=== PATIENT | female | born 1935 | race Caucasian/White ===

== ENCOUNTER → 2016-10-05 | Outpatient (CLI) | payer MEDICARE, MEDICAID ==
[~2016-10-05] MED LIST: 'CIPRO500 M1 PO; ADVAIR 500/501 E1 INH; ADVAIR 500/501 EA INH; AMLODIPINE5 MG PO; ASPIRIN81 M1 PO; CAL PO; CELEBREX200 MG PO; CEPHALEXIN500 M1 PO; CIPRO500 MG PO; COUMADIN3 M1 PO; ENALAPRIL20 MG PO; FLAGYL500 MG PO; FLAX SEED OIL1000 MG PO; FLAXSEED OIL1000 MG PO; INCRUSE EL62.5 MCG/A IH; LASIX20 MG PO; MAG PO; MULTI VITAMINS1 TAB PO; NASONEX0.05 MG/AC NAS; NEXIUM40 MG PO; NORVASC10 MG PO; OCUVITE1 TA2 PO; OXYBUTYNIN ER15 MG PO; OXYBUTYNIN5 MG PO; PERCOCET 325 MG1 TA2 PO; PRILOSEC20 M1 PO; PRILOSEC20 MG PO; PROVENTIL0.09 MG/A1 IH; SIMVASTATIN20 MG PO; SINGULAIR10 MG PO; SPIRIVA18 MCG PO; VENTOLIN H0.09 MG/AC INH; VICODIN 5-3001 EACH PO; VITAMIN D22000 UNIT PO; Vicodin 5/500 505 MG PO
== END | disposition home or self-care (01) ==
LOC: CARD 02:03
DX: I27.2 Other secondary pulmonary hypertension (principal); I51.7 Cardiomegaly; I34.0 Nonrheumatic mitral (valve) insufficiency; I07.1 Rheumatic tricuspid insufficiency

== ENCOUNTER → 2016-10-18 | Outpatient (CLI) | payer MEDICARE, MEDICAID ==
[2016-10-18 10:25] LABS: BASO % 0.7 % (0.0-1.0); EOS # 0.3 10*3/uL (0.0-0.4); EOS % 4.9 % (1.0-4.0); HEMOGLOBIN 13.7 g/dl (12.0-16.0); LYMPH # 2.2 10*3/uL (1.3-4.4); MEAN CELL VOLUME 97.3 fl (81.0-99.0); MEAN CORPUSCULAR HGB 30.3 pg (27.0-31.0); MEAN CORPUSCULAR HGB CONC 31.1 g/dl (33.0-37.0); MEAN PLATELET VOLUME 9.6 fl (9.6-12.3); MONO # 0.4 10*3/uL (0.1-1.0); MONO % 7.1 % (3.0-9.0); PLATELET COUNT AUTOMATED 230 10*3/uL (130-400); RED BLOOD COUNT 4.52 10*6/uL (4.10-5.10); RED CELL DISTRI WIDTH 13.2 % (0-14.5)
[2016-10-18 10:28] LABS: BILIRUBIN NEGATIVE (NEGATIVE); BLOOD NEGATIVE (NEGATIVE); CLARITY CLEAR (CLEAR); COLOR YELLOW (YELLOW); GLUCOSE NEGATIVE (NEGATIVE); KETONE NEGATIVE (NEGATIVE); LEUKO ESTERASE NEGATIVE (NEGATIVE); NITRITE NEGATIVE (NEGATIVE); PH 5.5 (5.0-9.0); PROTEIN NEGATIVE (NEGATIVE); SPECIFIC GRAVITY 1.015 (1.005-1.030); UROBILINOGEN 0.2 E.U./dl (0.2-1.0)
[2016-10-18 10:38] LABS: URINE TP/CRE RATIO 0.1 (<0.21)
[2016-10-18 10:51] LABS: INTERNATIONAL NORM RATIO 2.2 (2.0-3.5); PROTHROMBIN TIME 25.1 SECONDS (9.0-12.4)
[2016-10-18 10:52] LABS: ALBUMIN 3.7 gm/dl (3.1-4.5); BUN 20 mg/dl (7-24); CARBON DIOXIDE 29 mmol/L (21-32); CHLORIDE 108 mmol/L (98-107); EST GLOM FILT AFRICAN AMERICAN > 60 ml/min; GLUCOSE 99 mg/dL (65-99); POTASSIUM 4.1 mmol/L (3.5-5.1); SODIUM 143 mmol/L (136-145)
== END | disposition home or self-care (01) ==
LOC: LAB 09:54
PROVIDERS: Internal Medicine Nephrology
DX: N18.2 Chronic kidney disease, stage 2 (mild) (principal); I48.2 Chronic atrial fibrillation; Z79.899 Other long term (current) drug therapy

== ENCOUNTER → 2017-01-18 | Outpatient (CLI) | payer MEDICARE, MEDICAID | END | disposition home or self-care (01) | LOC: RAD 09:51 | DX: G56.03 Carpal tunnel syndrome, bilateral upper limbs (principal); M19.032 Primary osteoarthritis, left wrist; M19.031 Primary osteoarthritis, right wrist; M79.641 Pain in right hand; M25.531 Pain in right wrist; M19.042 Primary osteoarthritis, left hand; M19.041 Primary osteoarthritis, right hand ==

== ENCOUNTER → 2017-02-10 | Outpatient (CLI) | payer MEDICARE, MEDICAID | END | disposition home or self-care (01) | LOC: RAD 09:21 | DX: M16.12 Unilateral primary osteoarthritis, left hip (principal) ==

== ENCOUNTER → 2018-01-10 | Outpatient (CLI) | payer MEDICARE, MEDICAID | END | disposition home or self-care (01) | LOC: RAD 13:23 | DX: Z13.820 Encounter for screening for osteoporosis (principal); Z78.0 Asymptomatic menopausal state ==

== ENCOUNTER 2019-04-11 07:21 | Inpatient (IN) | payer MEDICARE, MEDICAID ==
[~2019-04-11] VITALS: Ht 160 cm; Wt 75.5 kg
[2019-04-11 07:21] VITALS: BP 134/74
--- NOTE | 2019-04-11 07:33 | NUR ---
PT VISITING WITH VISITOR AT BEDSIDE.
--- NOTE | 2019-04-11 08:14 | NUR ---
RESTING IN BED QUIETLY, CALL LIGHT IN REACH AND REINFORCED.
[2019-04-11 08:22] LABS: BASO % 0.3 % (0.0-1.0); EOS # 0.2 10*3/uL (0.0-0.4); EOS % 1.7 % (1.0-4.0); HEMATOCRIT 42.8 % (37.0-47.0); HEMOGLOBIN 13.5 g/dl (12.0-16.0); LYMPH # 1.4 10*3/uL (1.3-4.4); LYMPH % 12.7 % (27.0-41.0); MEAN CELL VOLUME 95.3 fl (81.0-99.0); MEAN CORPUSCULAR HGB 30.1 pg (27.0-31.0); MEAN CORPUSCULAR HGB CONC 31.5 g/dl (33.0-37.0); MEAN PLATELET VOLUME 9.8 fl (9.6-12.3); MONO # 0.7 10*3/uL (0.1-1.0); MONO % 6.1 % (3.0-9.0); NEUT # 8.7 10*3/uL (2.3-7.9); NEUT % 78.8 % (47.0-73.0); PLATELET COUNT AUTOMATED 240 10*3/uL (130-400); RED BLOOD COUNT 4.49 10*6/uL (4.10-5.10); RED CELL DISTRI WIDTH 14.6 % (0-14.5); WHITE BLOOD COUNT 11.1 10*3/uL (4.8-10.8)
--- NOTE | 2019-04-11 08:27 | NUR ---
UP TO BEDSIDE COMMODE, TOLERATED WELL.
[2019-04-11 08:33] LABS: ACT PARTIAL THROMBO TIME 29.9 SECONDS (20.0-32.1)
[2019-04-11 08:37] LABS: ALBUMIN 3.6 gm/dl (3.1-4.5); ALKALINE PHOSPHATASE 86 U/L (45-117); BUN 27 mg/dl (7-24); CHLORIDE 106 mmol/L (98-107); CREATININE 1.01 mg/dL (0.55-1.02); LIPASE 60 U/L (73-393); POTASSIUM 3.9 mmol/L (3.5-5.1); SGOT/AST 14 IU/L (3-35); SGPT/ALT 17 U/L (12-78); SODIUM 141 mmol/L (136-145); TOTAL PROTEIN 7.2 gm/dL (6.4-8.2); TROPONIN I < 0.015 ng/ml (<0.045)
--- NOTE | 2019-04-11 08:40 | NUR ---
PT HAD SMALL AMOUNT OF LIQUID BROWN DIARRHEA WHEN UP TO BEDSIDE COMMODE.
[2019-04-11 08:51] LABS: BILIRUBIN NEGATIVE (NEGATIVE); BLOOD NEGATIVE (NEGATIVE); CLARITY CLEAR (CLEAR); COLOR YELLOW (YELLOW); GLUCOSE NEGATIVE (NEGATIVE); KETONE NEGATIVE (NEGATIVE); LEUKO ESTERASE NEGATIVE (NEGATIVE); NITRITE NEGATIVE (NEGATIVE); UROBILINOGEN 0.2 E.U./dl (0.2-1.0)
[2019-04-11 09:03] LABS: WBC 0-2 wbc/hpf (0-5)
--- NOTE | 2019-04-11 09:20 | NUR ---
SLEEPING, RESPS EASY. IVF INFUSING.
--- NOTE | 2019-04-11 09:46 | NUR ---
RESTING IN BED, TELLS ME "FEELS A LITTLE BIT BETTER".
[2019-04-11 09:51] VITALS: BP 130/80
--- NOTE | 2019-04-11 10:25 | NUR ---
UNABLE TO TRANSPORT PT TO ROOM D/T RESIDENTS AT BEDSIDE.
[2019-04-11 11:00] VITALS: BP 125/55
--- NOTE | 2019-04-11 11:01 | NUR ---
A 83, admitted to 5E, under the services of MARS Michele DO with a diagnosis of DIARRHEA GEN. WEAKNESS ABDOMINAL PAIN [id number]. Chief complaint is DIARRHEA. Patient arrived via stretcher from ER. Monitor applied. Initial assessment completed. Vital signs taken and recorded. MARS MICHELE DO notified of admission to the unit. Orders received. See assessment for past medical history, medications and allergies. Patient and/or family oriented to unit. [address] visitation policy reviewed. Clothing/patient valuable form completed. IRIS TOMLINSON
[2019-04-11] MEDS ORDERED: NEXIUM40 MG PO (11:49)
[2019-04-11] MEDS ORDERED: AYR SALINE50 ML NAS (11:54)
[2019-04-11] MEDS ORDERED: ELIQUIS5 M1 PO (11:56)
--- NOTE | 2019-04-11 12:19 | NUR ---
Notified Dr. Dewey that med rec is up to date and completed. No new orders at this time, physician to review.
[2019-04-11 16:00] VITALS: BP 123/52
[2019-04-11 20:00] VITALS: BP 138/64
--- NOTE | 2019-04-11 20:58 | NUR ---
24 HR chart check completed.
--- NOTE | 2019-04-11 21:00 | NUR ---
SLEEPING, AWAKENS EASILY. RESPIRATIONS EASY. LUNGS DIMINISHED, CLEAR. PULSE OX 95% RA. TRACE BLE EDEMA. OFFERED AND EDUCATED REGARDING TEDS, PATIENT RECEPTIVE AND TEDS PLACED AT BEDSIDE. IV FLUIDS INFUSING PER ORDER. CALL LIGHT WITHIN REACH. NO VOICED COMPLAINTS
--- NOTE | 2019-04-11 21:55 | NUR ---
REQUESTED AND RECEIVED NORCO PER PRN ORDER FOR COMPLAINTS OF CHRONIC KNEE AND BACK PAIN RATING A 7. CALL LIGHT WITHIN REACH. WILL MONITOR
[2019-04-12] VITALS: BP 127/71
--- NOTE | 2019-04-12 | NUR ---
MEDS EFFECTIVE. SLEEPING. RESPIRATIONS EASY. VSS. CALL LIGHT WITHIN REACH
--- NOTE | 2019-04-12 06:00 | NUR ---
SLEPT THROUGHOUT NIGHT WITH NO DISTRESS NOTED. RESPIRATIONS EASY. IV FLUIDS MAINTAINED. CALL LIGHT WITHIN REACH. BED ALARM MAINTAINED FOR SAFETY
[2019-04-12 06:54] LABS: BASO % 0.5 % (0.0-1.0); EOS # 0.4 10*3/uL (0.0-0.4); EOS % 5.4 % (1.0-4.0); HEMATOCRIT 39.1 % (37.0-47.0); HEMOGLOBIN 12.1 g/dl (12.0-16.0); LYMPH # 1.7 10*3/uL (1.3-4.4); LYMPH % 26.1 % (27.0-41.0); MEAN CELL VOLUME 97.8 fl (81.0-99.0); MEAN CORPUSCULAR HGB 30.3 pg (27.0-31.0); MEAN CORPUSCULAR HGB CONC 30.9 g/dl (33.0-37.0); MEAN PLATELET VOLUME 10.1 fl (9.6-12.3); MONO # 0.5 10*3/uL (0.1-1.0); MONO % 7.7 % (3.0-9.0); PLATELET COUNT AUTOMATED 196 10*3/uL (130-400); RED CELL DISTRI WIDTH 14.7 % (0-14.5); WHITE BLOOD COUNT 6.7 10*3/uL (4.8-10.8)
[2019-04-12 06:57] LABS: CHLORIDE 113 mmol/L (98-107); CHOLESTEROL 104 mg/dL (<200); FREE T4 1.21 ng/dl (0.76-1.46); HDL CHOLESTEROL 52 mg/dl (40-60); LDL CHOLESTEROL 38 mg/dL (9-159); PHOSPHOROUS 2.3 mg/dL (2.5-4.9); POTASSIUM 3.8 mmol/L (3.5-5.1); SODIUM 144 mmol/L (136-145); TRIGLYCERIDES 72 mg/dl (<150); VLDL CHOLESTEROL 14 mg/dL (6-40)
[2019-04-12 07:08] LABS: BUN 15 mg/dl (7-24)
[2019-04-12 08:00] VITALS: BP 133/80
[2019-04-12 08:00] LABS: VITAMIN D, 25-HYDROXY 85.3 ng/mL (30-100)
--- NOTE | 2019-04-12 08:30 | NUR ---
Comprehensive Ophthalmologist in to talk to patient. Patient states lives at home alone with her family/friends checking in on her. There are 0 steps in the home. Physician: [facility] [place] [facility]: [facility] Home health services: none Patient's level of ADLs: MINIMAL ASSIST Patient has working utilities: yes DME: cane Follow-up physician's appointment after d/c: will be made by the hospitalist nurse director upon discharge Does patient want to access PORTAL?: no Discharge plan discussed with patient. She lives at home alone with her family/friends checking in on her. She is independent in her ADLs and ambulates with a cane. Discussed home health care services and she denies any home needs at this time. When medically stable she will be discharged to home. She states her friend, Lora Duong, will provide transportation on discharge. MELISSA COREA
--- NOTE | 2019-04-12 10:03 | NUR ---
Clive given per patient request for c/o chronic back and knee pain. Patient rates pain 10. Will monitor.
[2019-04-12 12:00] VITALS: BP 128/69
--- NOTE | 2019-04-12 15:38 | NUR ---
Discharge instructions reviewed with patient/family. Patient receptive and verbalizes understanding. Follow-up care arranged. Written instructions given to patient/family. Patient was educated on follow up visit with Dr. Armenta with in one week post discharge. Patient was wheeled from unit by staff member amd friend. Patients personal belongings were all accounted for. IRIS TOMLINSON
== END 2019-04-12 15:38 | disposition home or self-care (01) | DRG 641 ==
LOC: ED 07:21 → 5E 09:59 → EDHOLD 09:59 → 5E 10:09
PROVIDERS: Emergency Medicine; Internal Medicine; ADMIT Internal Medicine
DX: E86.0 Dehydration (principal); I48.20 Chronic atrial fibrillation, unspecified; R19.7 Diarrhea, unspecified; R73.9 Hyperglycemia, unspecified; E78.5 Hyperlipidemia, unspecified; N28.1 Cyst of kidney, acquired; K44.9 Diaphragmatic hernia without obstruction or gangrene; I70.0 Atherosclerosis of aorta; J30.2 Other seasonal allergic rhinitis; G89.29 Other chronic pain; M54.9 Dorsalgia, unspecified; I70.8 Atherosclerosis of other arteries; E55.9 Vitamin D deficiency, unspecified; K59.00 Constipation, unspecified; I11.9 Hypertensive heart disease without heart failure; K21.9 Gastro-esophageal reflux disease without esophagitis; E66.9 Obesity, unspecified; D72.829 Elevated white blood cell count, unspecified; J44.9 Chronic obstructive pulmonary disease, unspecified; N32.81 Overactive bladder; Z68.30 Body mass index [BMI] 30.0-30.9, adult; Z90.49 Acquired absence of other specified parts of digestive tract; Z80.3 Family history of malignant neoplasm of breast; Z80.0 Family history of malignant neoplasm of digestive organs; Z79.82 Long term (current) use of aspirin; Z79.899 Other long term (current) drug therapy

== ENCOUNTER → 2019-07-25 | Outpatient (CLI) | payer MEDICARE, MEDICAID ==
[~2019-07-25] MED LIST changes: +AYR SALINE50 ML NAS; +ELIQUIS5 M1 PO
== END | disposition home or self-care (01) ==
LOC: RAD 16:38
DX: J44.9 Chronic obstructive pulmonary disease, unspecified (principal); I07.1 Rheumatic tricuspid insufficiency; I27.20 Pulmonary hypertension, unspecified; R53.82 Chronic fatigue, unspecified; R06.09 Other forms of dyspnea

== ENCOUNTER → 2019-11-28 | Outpatient (CLI) | payer MEDICARE, MEDICAID | END | disposition home or self-care (01) | LOC: MAMMO 10:24 | DX: N60.01 Solitary cyst of right breast (principal) ==

== ENCOUNTER → 2020-04-24 | Outpatient (CLI) | payer MEDICARE, MEDICAID | END | disposition home or self-care (01) | LOC: COVID19 00:23 | PROVIDERS: ATTEND Ophthalmology | DX: Z01.812 Encounter for preprocedural laboratory examination (principal); Z20.828 Contact with and (suspected) exposure to other viral communicable diseases ==

== ENCOUNTER → 2020-04-29 | Day surgery (SDC) | payer MEDICARE, MEDICAID ==
[~2020-04-29] VITALS: Ht 160 cm; Wt 77.1 kg
[2020-04-29 10:00] VITALS: BP 135/57
[2020-04-29 11:20] VITALS: BP 113/53
[2020-04-29 11:36] VITALS: BP 107/48
[2020-04-29 11:49] VITALS: BP 102/49
== END ==
LOC: SDC 04-24 10:15
PROVIDERS: ATTEND Ophthalmology
DX: H25.812 Combined forms of age-related cataract, left eye (principal); F32.9 Major depressive disorder, single episode, unspecified; J44.9 Chronic obstructive pulmonary disease, unspecified; I10 Essential (primary) hypertension; I48.19 Other persistent atrial fibrillation; Z79.01 Long term (current) use of anticoagulants; Z79.899 Other long term (current) drug therapy

== ENCOUNTER → 2020-05-22 | Outpatient (CLI) | payer MEDICARE, MEDICAID | END | disposition home or self-care (01) | LOC: COVID19 12:22 | PROVIDERS: ATTEND Ophthalmology | DX: Z01.812 Encounter for preprocedural laboratory examination (principal); Z20.828 Contact with and (suspected) exposure to other viral communicable diseases ==

== ENCOUNTER → 2020-07-24 | Outpatient (CLI) | payer MEDICARE, MEDICAID | END | disposition home or self-care (01) | LOC: COVID19 11:07 | PROVIDERS: ATTEND Ophthalmology | DX: Z01.812 Encounter for preprocedural laboratory examination (principal); Z20.822 Contact with and (suspected) exposure to COVID-19 ==

== ENCOUNTER → 2020-07-29 | Day surgery (SDC) | payer MEDICARE, MEDICAID ==
[~2020-07-29] VITALS: Ht 160 cm; Wt 77.1 kg
[2020-07-29 11:00] VITALS: BP 129/60
[2020-07-29 12:33] VITALS: BP 136/69
[2020-07-29 12:48] VITALS: BP 129/83
[2020-07-29 13:03] VITALS: BP 123/63
== END ==
LOC: SDC 05-25 08:00
PROVIDERS: ATTEND Ophthalmology
DX: H25.811 Combined forms of age-related cataract, right eye (principal); F32.9 Major depressive disorder, single episode, unspecified; I10 Essential (primary) hypertension; K21.9 Gastro-esophageal reflux disease without esophagitis; J44.9 Chronic obstructive pulmonary disease, unspecified; I48.91 Unspecified atrial fibrillation; Z79.899 Other long term (current) drug therapy

== ENCOUNTER 2021-07-05 16:11 | Inpatient (IN) | payer MEDICARE, MEDICAID ==
[~2021-07-05] VITALS: Ht 157 cm; Wt 55.0 kg
[2021-07-05 17:14] VITALS: BP 124/61
[2021-07-05] MEDS ORDERED: PRESERVISION A1 EAC3 PO (18:36)
[2021-07-05] MEDS ORDERED: REMERON15 M2 PO (18:37)
[2021-07-05 19:19] LABS: BASO % 0.1 % (0.0-1.0); EOS # 0.1 10*3/uL (0.0-0.4); EOS % 1.5 % (1.0-4.0); HEMATOCRIT 32.2 % (37.0-47.0); LYMPH # 1.3 10*3/uL (1.3-4.4); LYMPH % 18.3 % (27.0-41.0); MEAN CELL VOLUME 99.7 fl (81.0-99.0); MEAN CORPUSCULAR HGB 31.6 pg (27.0-31.0); MEAN CORPUSCULAR HGB CONC 31.7 g/dl (33.0-37.0); MEAN PLATELET VOLUME 10.3 fl (9.6-12.3); MONO # 0.6 10*3/uL (0.1-1.0); MONO % 7.7 % (3.0-9.0); NEUT # 5.1 10*3/uL (2.3-7.9); NEUT % 72.3 % (47.0-73.0); PLATELET COUNT AUTOMATED 218 10*3/uL (130-400); RED BLOOD COUNT 3.23 10*6/uL (4.10-5.10); RED CELL DISTRI WIDTH 14.7 % (0-14.5); WHITE BLOOD COUNT 7.1 10*3/uL (4.8-10.8)
[2021-07-05 19:34] LABS: ALBUMIN 2.9 gm/dl (3.1-4.5); CREATININE 1.32 mg/dL (0.55-1.02); POTASSIUM 4.3 mmol/L (3.5-5.1); TOTAL PROTEIN 6.3 gm/dL (6.4-8.2)
[2021-07-05 19:45] VITALS: BP 124/62
[2021-07-05 21:59] LABS: BILIRUBIN Negative (Negative); BLOOD Negative (Negative); CLARITY Clear (Clear); COLOR Yellow (Yellow); GLUCOSE Negative (Negative); KETONE Negative (Negative); LEUKO ESTERASE 3+ (Negative); NITRITE Positive (Negative); PH 7.5 (4.5-8.0); SPECIFIC GRAVITY 1.015 (1.001-1.030)
[2021-07-05 22:05] LABS: BACTERIA 4+; MUCOUS TRACE; RBC 0-2 rbc/hpf (0-2); WBC TNTC wbc/hpf (0-5)
[2021-07-06 00:47] VITALS: BP 120/59
[2021-07-06 06:18] VITALS: BP 120/62
[2021-07-06 06:50] LABS: BASO % 0.4 % (0.0-1.0); EOS # 0.2 10*3/uL (0.0-0.4); EOS % 3.4 % (1.0-4.0); HEMATOCRIT 32.1 % (37.0-47.0); LYMPH # 1.3 10*3/uL (1.3-4.4); LYMPH % 26.3 % (27.0-41.0); MEAN CELL VOLUME 99.7 fl (81.0-99.0); MEAN CORPUSCULAR HGB 31.7 pg (27.0-31.0); MEAN CORPUSCULAR HGB CONC 31.8 g/dl (33.0-37.0); MEAN PLATELET VOLUME 10.3 fl (9.6-12.3); MONO # 0.4 10*3/uL (0.1-1.0); MONO % 7.7 % (3.0-9.0); NEUT # 3.1 10*3/uL (2.3-7.9); PLATELET COUNT AUTOMATED 192 10*3/uL (130-400); RED BLOOD COUNT 3.22 10*6/uL (4.10-5.10); RED CELL DISTRI WIDTH 14.9 % (0-14.5); WHITE BLOOD COUNT 5.1 10*3/uL (4.8-10.8)
[2021-07-06 07:08] LABS: ALBUMIN 2.8 gm/dl (3.1-4.5); POTASSIUM 4.1 mmol/L (3.5-5.1)
[2021-07-06 07:23] LABS: CREATININE 1.1 mg/dL (0.55-1.02); THYROID STIM HORMONE (HS) 1.73 uIU/ml (0.358-4.75)
[2021-07-06 08:04] VITALS: BP 112/61
[2021-07-06 17:13] VITALS: BP 125/67
[2021-07-06] MEDS ORDERED: HYDROCODONE-AC1 EAC1 PO (22:32)
[2021-07-07 04:26] LABS: BASO % 0.4 % (0.0-1.0); EOS # 0.2 10*3/uL (0.0-0.4); EOS % 4.3 % (1.0-4.0); HEMATOCRIT 30.1 % (37.0-47.0); LYMPH # 1.5 10*3/uL (1.3-4.4); LYMPH % 27.9 % (27.0-41.0); MEAN CORPUSCULAR HGB 31.6 pg (27.0-31.0); MEAN CORPUSCULAR HGB CONC 31.6 g/dl (33.0-37.0); MEAN PLATELET VOLUME 10.6 fl (9.6-12.3); MONO # 0.5 10*3/uL (0.1-1.0); MONO % 8.6 % (3.0-9.0); NEUT # 3.1 10*3/uL (2.3-7.9); NEUT % 58.4 % (47.0-73.0); PLATELET COUNT AUTOMATED 171 10*3/uL (130-400); RED BLOOD COUNT 3.01 10*6/uL (4.10-5.10); RED CELL DISTRI WIDTH 14.6 % (0-14.5); WHITE BLOOD COUNT 5.3 10*3/uL (4.8-10.8)
[2021-07-07 04:46] LABS: BUN 20 mg/dl (7-24); CHLORIDE 110 mmol/L (98-107); CREATININE 0.88 mg/dL (0.55-1.02); SODIUM 142 mmol/L (136-145)
[2021-07-07 07:50] VITALS: BP 118/64
[2021-07-07 09:50] VITALS: BP 151/72
[2021-07-07 10:50] VITALS: BP 138/67
[2021-07-07] MEDS ORDERED: ELIQUIS5 M1 PO (10:52)
[2021-07-07] MEDS ORDERED: CIPRO500 MG PO (10:52)
== END 2021-07-07 14:17 | DRG 689 ==
LOC: ED 16:11 → EDHOLD 22:16 → 4E 07-07 08:40
PROVIDERS: Internal Medicine; ADMIT Internal Medicine; ATTEND Internal Medicine
DX: N30.00 Acute cystitis without hematuria (principal); N17.0 Acute kidney failure with tubular necrosis; E44.0 Moderate protein-calorie malnutrition; I48.20 Chronic atrial fibrillation, unspecified; N32.81 Overactive bladder; Z20.822 Contact with and (suspected) exposure to COVID-19; R73.9 Hyperglycemia, unspecified; E83.41 Hypermagnesemia; D53.9 Nutritional anemia, unspecified; I10 Essential (primary) hypertension; J44.9 Chronic obstructive pulmonary disease, unspecified; K21.9 Gastro-esophageal reflux disease without esophagitis; J30.2 Other seasonal allergic rhinitis; E78.2 Mixed hyperlipidemia; Z90.49 Acquired absence of other specified parts of digestive tract; Z80.3 Family history of malignant neoplasm of breast; Z80.0 Family history of malignant neoplasm of digestive organs; Z79.899 Other long term (current) drug therapy; Z79.82 Long term (current) use of aspirin; Z68.22 Body mass index [BMI] 22.0-22.9, adult

== ENCOUNTER 2023-10-26 12:21 | Inpatient (IN) | payer MEDICARE, MEDICAID ==
[2023-10-26] VITALS (14 sets, daily range): BP systolic 82–132; BP diastolic 37–92
[~2023-10-26] VITALS: Ht 162.5 cm; Wt 40.5 kg
[~2023-10-26 12:21] MED LIST changes: +FOLTABS 800 TA1 EACH PO; +HYDROCODONE-AC1 EAC1 PO; +LEVOFLOXACIN750 M2 PO; +MUCUS RELIEF600 MG PO; +POTASSIUM CHLO20 ME4 PO; +PRESERVISION A1 EAC3 PO; +REMERON15 M2 PO
[2023-10-26] MEDS ORDERED: SODIUM CHLORIDE 0.9% 1,000 ML IV SCH (12:40)
[2023-10-26] MEDS ORDERED: FEVER REDUCER650 MG PO (13:10)
[2023-10-26] MEDS ORDERED: ALLOPURINOL100 MG PO (13:11)
[2023-10-26] MEDS ORDERED: BREO ELLIPTA 21 EACH INH (13:12)
[2023-10-26 13:13] LABS: BASO % 0.2 % (0.0-1.0); EOS % 0.1 % (1.0-4.0); HEMATOCRIT 50.3 % (37.0-47.0); LYMPH # 1.4 10*3/uL (1.3-4.4); LYMPH % 10.5 % (27.0-41.0); MEAN CELL VOLUME 99.4 fl (81.0-99.0); MEAN CORPUSCULAR HGB 29.2 pg (27.0-31.0); MEAN CORPUSCULAR HGB CONC 29.4 g/dl (33.0-37.0); MEAN PLATELET VOLUME 11.2 fl (9.6-12.3); MONO # 0.5 10*3/uL (0.1-1.0); MONO % 3.4 % (3.0-9.0); NEUT # 11.4 10*3/uL (2.3-7.9); NEUT % 85.4 % (47.0-73.0); PLATELET COUNT AUTOMATED 540 10*3/uL (130-400); RED BLOOD COUNT 5.06 10*6/uL (4.10-5.10); RED CELL DISTRI WIDTH 16.7 % (0-14.5); WHITE BLOOD COUNT 13.4 10*3/uL (4.8-10.8)
[2023-10-26] MEDS ORDERED: VOLTAREN ARTHRI20 GM T (13:18)
[2023-10-26] MEDS ORDERED: FERROUS SULFAT325 MG PO (13:19)
[2023-10-26] MEDS ORDERED: GABAPENTIN100 M2 PO (13:20)
[2023-10-26 13:32] LABS: TOTAL PROTEIN 8.3 gm/dL (6.0-8.0)
[2023-10-26 13:39] LABS: POTASSIUM 6.4 mmol/L (3.4-5.1)
[2023-10-26] MEDS ORDERED: SODIUM BICARBONATE 150 MEQ in DEXTROSE 5% 1,000 ML IV ONE (13:50)
[2023-10-26 14:05] LABS: BILIRUBIN Negative (Negative); BLOOD 2+ (Negative); CLARITY Cloudy (Clear); COLOR Yellow (Yellow); GLUCOSE Negative (Negative); KETONE Trace (Negative); LEUKO ESTERASE 3+ (Negative); NITRITE Negative (Negative); SPECIFIC GRAVITY 1.015 (1.001-1.030); UROBILINOGEN 0.2 E.U./dl (0.0-1.0)
[2023-10-26 14:22] LABS: BACTERIA 4+; WBC TNTC wbc/hpf (0-5)
[2023-10-26] MEDS ORDERED: Ceftriaxone Sodium 1 GM/10 ML SYR IV ONE (14:45)
[2023-10-26] MEDS ORDERED: Magnesium Hydroxide 30 ML UDC PO PRN (17:10)
[2023-10-26] MEDS ORDERED: ACETAMINOPHEN 650 MG SUPP R PRN (17:10)
[2023-10-26] MEDS ORDERED: ACETAMINOPHEN 325 MG TAB PO PRN (17:10)
[2023-10-26] MEDS ORDERED: BISACODYL 5 MG TAB PO PRN (17:10)
[2023-10-26] MEDS ORDERED: BISACODYL 10 MG SUPP R PRN (17:10)
[2023-10-26] MEDS ORDERED: Pantoprazole Sodium 40 MG VIAL IV SCH (18:00)
[2023-10-26] MEDS ORDERED: CALCIUM GLUCONATE 1 GM/10 ML VIAL IV ONE (18:00)
[2023-10-26] MEDS ORDERED: SODIUM POLYSTYRENE SULFONATE 15 GM/60 ML BOT PO ONE (18:00)
[2023-10-26] MEDS ORDERED: INSULIN REGULAR, HUMAN 1 UNIT/0.01 ML IV ONE (19:30)
[2023-10-26] MEDS ORDERED: SUCRALFATE 1 GM TAB PO SCH (20:00)
[2023-10-26] MEDS ORDERED: SODIUM CHLORIDE 0.45% 1,000 ML IV SCH (21:45)
[2023-10-26] MEDS ORDERED: PROSOURCE PLUS887 ML PO (22:57)
[2023-10-26] MEDS ORDERED: CALCIUM 600 MG1 EAC7 PO (23:01)
[2023-10-26] MEDS ORDERED: PRESERVISION A1 EAC7 PO (23:03)
[2023-10-27] VITALS: BP 118/60
[2023-10-27 05:59] LABS: BASO % 0.3 % (0.0-1.0); EOS # 0.4 10*3/uL (0.0-0.4); LYMPH # 2.1 10*3/uL (1.3-4.4); LYMPH % 15.3 % (27.0-41.0); MEAN CELL VOLUME 98.6 fl (81.0-99.0); MEAN CORPUSCULAR HGB 29.8 pg (27.0-31.0); MEAN CORPUSCULAR HGB CONC 30.2 g/dl (33.0-37.0); MEAN PLATELET VOLUME 10.7 fl (9.6-12.3); MONO # 0.6 10*3/uL (0.1-1.0); MONO % 4.1 % (3.0-9.0); NEUT # 10.5 10*3/uL (2.3-7.9); NEUT % 76.6 % (47.0-73.0); PLATELET COUNT AUTOMATED 401 10*3/uL (130-400); RED BLOOD COUNT 4.36 10*6/uL (4.10-5.10); RED CELL DISTRI WIDTH 16.5 % (0-14.5); WHITE BLOOD COUNT 13.8 10*3/uL (4.8-10.8)
[2023-10-27 06:14] LABS: POTASSIUM 4.8 mmol/L (3.4-5.1)
[2023-10-27 08:00] VITALS: BP 121/75
[2023-10-27 12:00] VITALS: BP 114/78
[2023-10-27] MEDS ORDERED: Ceftriaxone Sodium 1 GM,IV 1 EA in SYRINGE INFUSION 10 ML IV SCH (14:00)
[2023-10-27] MEDS ORDERED: HEEL PROTECTOR DEVICE ONE (15:00)
[2023-10-27] MEDS ORDERED: FOAM BANDAGE 1 EACH BANDAGE T ONE (15:00)
[2023-10-27] MEDS ORDERED: FOAM BANDAGE 4X4 T ONE (15:00)
[2023-10-27 16:00] VITALS: BP 135/78
[2023-10-27 20:42] VITALS: BP 135/76
[2023-10-28 00:06] VITALS: BP 118/65
[2023-10-28 08:00] VITALS: BP 161/77
[2023-10-28 12:00] VITALS: BP 134/77
[2023-10-28 12:49] LABS: BASO % 0.2 % (0.0-1.0); EOS # 0.2 10*3/uL (0.0-0.4); EOS % 1.6 % (1.0-4.0); HEMATOCRIT 41.1 % (37.0-47.0); LYMPH # 1.3 10*3/uL (1.3-4.4); LYMPH % 13.6 % (27.0-41.0); MEAN CELL VOLUME 99.3 fl (81.0-99.0); MEAN CORPUSCULAR HGB 29.5 pg (27.0-31.0); MEAN CORPUSCULAR HGB CONC 29.7 g/dl (33.0-37.0); MEAN PLATELET VOLUME 10.3 fl (9.6-12.3); MONO # 0.4 10*3/uL (0.1-1.0); MONO % 4.1 % (3.0-9.0); NEUT # 7.8 10*3/uL (2.3-7.9); NEUT % 79.8 % (47.0-73.0); PLATELET COUNT AUTOMATED 361 10*3/uL (130-400); RED BLOOD COUNT 4.14 10*6/uL (4.10-5.10); RED CELL DISTRI WIDTH 16.1 % (0-14.5); WHITE BLOOD COUNT 9.7 10*3/uL (4.8-10.8)
[2023-10-28 13:03] LABS: POTASSIUM 3.9 mmol/L (3.4-5.1)
[2023-10-28] MEDS ORDERED: CIPROFLOXACIN 200 ML IV SCH (13:20)
[2023-10-28 15:55] VITALS: BP 114/62
[2023-10-28 20:00] VITALS: BP 110/58
[2023-10-29] VITALS: BP 135/65
[2023-10-29 06:28] LABS: BASO % 0.1 % (0.0-1.0); EOS # 0.1 10*3/uL (0.0-0.4); EOS % 1.5 % (1.0-4.0); LYMPH # 1.8 10*3/uL (1.3-4.4); LYMPH % 19.3 % (27.0-41.0); MEAN CELL VOLUME 98.1 fl (81.0-99.0); MEAN CORPUSCULAR HGB 29.4 pg (27.0-31.0); MEAN PLATELET VOLUME 10.8 fl (9.6-12.3); MONO # 0.5 10*3/uL (0.1-1.0); MONO % 4.9 % (3.0-9.0); NEUT # 6.8 10*3/uL (2.3-7.9); NEUT % 73.5 % (47.0-73.0); PLATELET COUNT AUTOMATED 307 10*3/uL (130-400); RED BLOOD COUNT 3.77 10*6/uL (4.10-5.10); RED CELL DISTRI WIDTH 16.2 % (0-14.5); WHITE BLOOD COUNT 9.2 10*3/uL (4.8-10.8)
[2023-10-29 06:53] LABS: POTASSIUM 3.5 mmol/L (3.4-5.1)
[2023-10-29 08:00] VITALS: BP 131/80
[2023-10-29 12:00] VITALS: BP 116/56
[2023-10-29 16:00] VITALS: BP 149/44
[2023-10-29] MEDS ORDERED: Meropenem 500 MG in SODIUM CHLORIDE 0.9% 50 ML IV SCH (18:00)
[2023-10-29 20:00] VITALS: BP 104/63
[2023-10-29] MEDS ORDERED: Meropenem 1 GM in SODIUM CHLORIDE 0.9% 100 ML IV SCH (22:00)
[2023-10-29] MEDS ORDERED: CIPROFLOXACIN 200 ML IV SCH (22:00)
[2023-10-30 00:14] VITALS: BP 118/66
[2023-10-30 06:11] LABS: BASO % 0.1 % (0.0-1.0); EOS # 0.2 10*3/uL (0.0-0.4); EOS % 1.7 % (1.0-4.0); HEMATOCRIT 36.8 % (37.0-47.0); LYMPH # 1.6 10*3/uL (1.3-4.4); LYMPH % 18.3 % (27.0-41.0); MEAN CELL VOLUME 98.1 fl (81.0-99.0); MEAN CORPUSCULAR HGB 29.3 pg (27.0-31.0); MEAN CORPUSCULAR HGB CONC 29.9 g/dl (33.0-37.0); MEAN PLATELET VOLUME 11.5 fl (9.6-12.3); MONO # 0.5 10*3/uL (0.1-1.0); MONO % 6.2 % (3.0-9.0); NEUT # 6.3 10*3/uL (2.3-7.9); NEUT % 72.9 % (47.0-73.0); PLATELET COUNT AUTOMATED 310 10*3/uL (130-400); RED BLOOD COUNT 3.75 10*6/uL (4.10-5.10); RED CELL DISTRI WIDTH 15.8 % (0-14.5); WHITE BLOOD COUNT 8.7 10*3/uL (4.8-10.8)
[2023-10-30 06:38] LABS: POTASSIUM 3.1 mmol/L (3.4-5.1)
[2023-10-30 08:00] VITALS: BP 141/63
[2023-10-30] MEDS ORDERED: POTASSIUM CHLORIDE IN WATER 100 ML IV SCH (09:00)
[2023-10-30] MEDS ORDERED: BUDESONIDE 0.5 MG AMP NEB SCH (09:10)
[2023-10-30] MEDS ORDERED: Albuterol Sulf/Ipratropium 3 ML VIAL NEB SCH (09:10)
[2023-10-30] MEDS ORDERED: FLUTICASONE INH SCH (10:00)
[2023-10-30] MEDS ORDERED: amLODIPine besylate 5 MG TAB PO SCH (10:00)
[2023-10-30] MEDS ORDERED: TIOTROPIUM BROMIDE 18 MCG CAPSULES INHALER INH SCH (10:00)
[2023-10-30] MEDS ORDERED: VILANTEROL INH SCH (10:00)
[2023-10-30 12:00] VITALS: BP 152/82
[2023-10-30 16:00] VITALS: BP 138/69
[2023-10-30] MEDS ORDERED: Montelukast Sodium 10 MG TAB PO SCH (22:00)
[2023-10-30] MEDS ORDERED: Mirtazapine 15 MG TAB PO SCH (22:00)
[2023-10-30] MEDS ORDERED: ALLOPURINOL 100 MG TAB PO SCH (22:00)
[2023-10-31] MEDS ORDERED: GABAPENTIN 100 MG CAP PO SCH (08:00)
== END 2023-10-30 16:43 | DRG 871 ==
LOC: ED 12:21 → 4E 16:54 → EDHOLD 16:54 → ICCU 16:54 → 4E 10-27 16:51
PROVIDERS: Family Medicine; Internal Medicine; Student in an Organized Health Care Education/Training Program; ADMIT Internal Medicine; ATTEND Internal Medicine
DX: A41.9 Sepsis, unspecified organism (principal); E43 Unspecified severe protein-calorie malnutrition; N17.0 Acute kidney failure with tubular necrosis; K92.2 Gastrointestinal hemorrhage, unspecified; E87.0 Hyperosmolality and hypernatremia; I48.20 Chronic atrial fibrillation, unspecified; N39.0 Urinary tract infection, site not specified; Z68.1 Body mass index [BMI] 19.9 or less, adult; G62.9 Polyneuropathy, unspecified; E87.5 Hyperkalemia; R65.20 Severe sepsis without septic shock; J44.9 Chronic obstructive pulmonary disease, unspecified; N18.9 Chronic kidney disease, unspecified; E78.5 Hyperlipidemia, unspecified; Z66 Do not resuscitate; M10.9 Gout, unspecified; G89.29 Other chronic pain; M54.9 Dorsalgia, unspecified; E87.8 Other disorders of electrolyte and fluid balance, not elsewhere classified; I45.10 Unspecified right bundle-branch block; I44.4 Left anterior fascicular block; N32.81 Overactive bladder; E61.1 Iron deficiency; I95.9 Hypotension, unspecified; I12.9 Hypertensive chronic kidney disease with stage 1 through stage 4 chronic kidney disease, or unspecified chronic kidney disease; K21.9 Gastro-esophageal reflux disease without esophagitis; D72.9 Disorder of white blood cells, unspecified; D75.839 Thrombocytosis, unspecified; D75.89 Other specified diseases of blood and blood-forming organs; R31.29 Other microscopic hematuria; Z88.0 Allergy status to penicillin; Z88.2 Allergy status to sulfonamides; Z90.49 Acquired absence of other specified parts of digestive tract; Z80.0 Family history of malignant neoplasm of digestive organs; Z80.3 Family history of malignant neoplasm of breast; Z81.8 Family history of other mental and behavioral disorders; Z51.5 Encounter for palliative care